=== PATIENT | male | born 1985 | race Caucasian/White ===

== ENCOUNTER 2018-02-15 13:38 | Emergency (ER) | payer MEDICAID ==
[~2018-02-15] VITALS: Ht 162.6 cm; Wt 80.7 kg
[2018-02-15 13:42] VITALS: BP 134/74
--- NOTE | 2018-02-15 13:45 | NUR ---
pt stable for wait in lobby room. advised to notify nurse if change in condition.
--- NOTE | 2018-02-15 15:10 | NUR ---
PT. CAME INTO THE ED DUE TO BODY ACHES AND COUGH X 2 DAYS. PT. STATES " MY WHOLE BODY HURTS AND I HAVE BEEN HAVING A COUGH". PT. DENIES FEVERS. PT. HAS A NON PRODUCTIVE COUGH. LS: CLEAR THROUGHOUT BILATERALLY. RR EVEN AND UNLABORED. DENIES SOB. DENIES MED HX AND ANY ALLERGIES./10 PAIN ALL OVER AND DESCRIBED ACHING. ER MD NOTIFIED. WILL CONTINUE TO MONITOR.
[2018-02-15] MEDS ORDERED: ALBUTEROL SULFATE/IPRATROPIU 3 ML SOL IH ONE (15:55)
[2018-02-15] MEDS ORDERED: DEXAMETHASONE 10 MG/ML VIAL IM ONE (15:55)
[2018-02-15] MEDS ORDERED: CLINDAMYCIN 600 MG/4 ML VIAL IM ONE (15:55)
--- NOTE | 2018-02-15 16:12 | NUR ---
RT AT BEDSIDE AT THIS TIME.
--- NOTE | 2018-02-15 16:44 | NUR ---
PT. RESTING COMFORTABLY IN BED, RR EVEN AND UNLABORED. WILL CONTINUE TO MONITOR.
[2018-02-15 16:50] VITALS: BP 132/70
--- NOTE | 2018-02-15 16:50 | NUR ---
Patient discharged with v/s stable. Written and verbal after care instructions given and explained. Patient alert, oriented and verbalized understanding of instructions. Ambulatory with steady gait. All questions addressed prior to discharge. ID band removed. Patient advised to follow up with PMD. Rx of AZITHROMYCIN AND PROMETHAZINE AND CODEINE COUGH SYRUP given. Patient educated on indication of medication including possible reaction and side effects. Opportunity to ask questions provided and answered.
== END 2018-02-15 16:50 | disposition home or self-care (01) ==
LOC: MED 13:38
DX: J32.9 Chronic sinusitis, unspecified (principal)
CPT/HCPCS: 94640; 96372; 99284; J1100; J3490; J7620

== ENCOUNTER 2018-10-21 19:22 | Emergency (ER) | payer MEDICAID ==
[~2018-10-21] VITALS: Ht 170.2 cm; Wt 81.6 kg
[2018-10-21 19:40] VITALS: BP 122/72
--- NOTE | 2018-10-21 19:45 | NUR ---
PT AMBULATED TO LOBBY WITH VSS.
--- NOTE | 2018-10-21 20:31 | NUR ---
PT WAS TAKEN TO BED 01 BY WHEELCHAIR.
--- NOTE | 2018-10-21 20:42 | NUR ---
PATIENT PRESENTS TO ED WITH FELL PLAYING SOCCER. ANOTHER PLAYER LANDED ON PT. TWISTED ANKLE. EDEMA BILAT SIDES OF LEFT ANKLE. BRUISING ABOVE HEEL. CMS INTACT BILAT LOWER EXTREMETIES. VSS. DENIES N/V/D; SKIN IS PINK/WARM/DRY; AAOX4 WITH EVEN AND STEADY GAIT; LUNGS CLEAR BL; HR EVEN AND REGULAR; PT DENIES ANY FEVER, CP, SOB, OR COUGH AT THIS TIME; PATIENT STATES PAIN OF 6/10 AT THIS TIME; VSS; PATIENT POSITIONED FOR COMFORT; HOB ELEVATED; BEDRAILS UP X2; BED DOWN. ER MD MADE AWARE OF PT STATUS.
--- NOTE | 2018-10-21 20:46 | NUR ---
PT L ANKLE WRAPPED IN [place] WRAP, +CSM
--- NOTE | 2018-10-21 20:48 | NUR ---
PT GIVEN PROPER INSTRUCTION ON USE OF CRUTCHES. CRUTCHES FITTED TO PT HEIGHT WITH 2 INCH SPACE BETWEEN ARMPIT AND START OF CRUTCHES, AND HANDLES AT PT WRISTS AT REST. PT GIVEN PROPER INSTRUCTION ON USE, INCLUDING FROM SITTING TO STANDING, ASCENDING/DESCENDING STAIRS, AND WALKING . PT DEMONSTRATED SAFE USE FOR APPROXIMATELY 40 FEET, STATED HE FELT COMFORTABLE WITH USE
[2018-10-21] MEDS ORDERED: IBUPROFEN 800 MG TAB PO ONE (20:50)
[2018-10-21 20:56] VITALS: BP 130/80
== END 2018-10-21 20:56 | disposition home or self-care (01) ==
LOC: MED 19:22
DX: S93.402A Sprain of unspecified ligament of left ankle, initial encounter (principal); X58.XXXA Exposure to other specified factors, initial encounter; Y93.66 Activity, soccer; Y92.89 Other specified places as the place of occurrence of the external cause; Y99.8 Other external cause status
CPT/HCPCS: 73610; 99283